=== PATIENT | female | born 1930 | race Caucasian/White ===

== ENCOUNTER 2016-08-06 08:40 | Emergency (ER) | payer OTHER ==
[~2016-08-06] VITALS: Ht 152.4 cm; Wt 77.6 kg
[~2016-08-06 08:40] MED LIST: ASPER-FLEX85 GM TOP; ASPIR 8181 MG PO; ATIVAN1 MG PO; BACTRIM DS TAB1 EACH PO; BETADINE30 ML TOP; BISACODYL SUPP10 MG RECTAL; BRILINTA90 MG PO; COLACE100 MG PO; COUMADIN 4 MG TA4 M1 PO; DELSYM COU30 MG/5 M1; DEPAKOTE 250MG250 M1 PO; DEPAKOTE ER500 MG PO; DULCOLAX5 MG PO; DUONEB 2.5-0.5 M3 ML INH; EFFIENT10 MG PO; ENOXAPARIN30 MG/0.1 SUBQ; ERYTHROMYCIN E3.5 G2 OPHTHALMIC; FERREX 150150 MG PO; FLOMAX0.4 MG PO; GEODON20 MG PO; HYDROCODONE-AP1 EAC6 PO; LABETALOL 100100 MG PO; LASIX 20 MG TAB20 MG PO; LASIX 40 MG TAB40 M2 PO; LEVAQUIN 500 M500 M2 PO; LEVOTHYROXIN0.075 MG PO; LEVOTHYROXINE0.05 MG PO; LIPITOR 20 MG T20 M1 PO; LISINOPRIL10 MG PO; LOPRESSOR25 PO; MAALOX MAXIMUM355 ML PO; MILK OF MA2400 MG/10 PO; MULTI-VITAMIN1 EAC5 PO; NUEDEXTA 20-101 EACH PO; OLANZAPINE2.5 MG PO; PEG3350510 GM PO; PEPCID20 MG PO; POLYMYXIN B/TMP10 ML OP; PRILOSEC 20 MG20 MG PO; ROBITUSSIN100 MG/53 PO; SEROQUEL 25 MG25 M1 PO; TRAZODONE HCL50 MG PO; TYLENOL325 MG PO; VENTOLIN HFA 1818 GM INH; VERAPAMIL SR180 MG PO; VITAMIN D1000 UNI1 PO; ZYPREXA5 MG PO; ZYPREXA7.5 MG PO; ZYVOX600 MG PO
[2016-08-06 10:10] LABS: BASOPHILS 0.5 % (0.0-2.0); EOSINOPHILS 2.9 % (0.0-3.0); HEMATOCRIT 37.8 % (37.0-47.0); HEMOGLOBIN 12.6 gm/dL (12.0-15.0); LYMPHOCYTES 34.4 % (24.0-44.0); MCH 30.7 pg (26.0-34.0); MCHC 33.3 % (28.0-37.0); MCV 92.2 fL (80.0-100.0); MONOCYTES 8.3 % (1.0-8.0); PLATELET COUNT 185 thou/uL (150-400); POLYS 53.9 % (36.0-66.0); RDW 14.8 % (10.5-14.5); WBC 5.5 thou/uL (4.0-11.0)
[2016-08-06 10:12] LABS: MANUAL DIFF NO
[2016-08-06 10:23] LABS: CALCIUM 10.1 mg/dL (8.5-10.1); CREATININE 1.1 mg/dL (0.6-1.3); POTASSIUM 4.6 mmol/L (3.5-5.1)
[2016-08-06 10:27] LABS: ALBUMIN 3.1 g/dL (3.4-5.0); TOTAL BILIRUBIN 0.4 mg/dL (<0.1-1.0); TOTAL PROTEIN 7.6 g/dL (6.4-8.2)
[2016-08-06 10:35] LABS: URINE BILIRUBIN NEGATIVE (Negative); URINE BLOOD NEGATIVE (Negative); URINE COLOR YELLOW; URINE GLUCOSE-RANDOM* NEGATIVE (Negative); URINE KETONES NEGATIVE (Negative); URINE LEUKOCYTES-REFLEX NEGATIVE (Negative); URINE PROTEIN (DIPSTICK) NEGATIVE (Negative); URINE UROBILINOGEN 0.2 E.U./dl (0.2-1.0)
== END 2016-08-06 11:40 | disposition home or self-care (01) ==
LOC: ER 08:40
PROVIDERS: Emergency Medicine
DX: F03.90 Unspecified dementia, unspecified severity, without behavioral disturbance, psychotic disturbance, mood disturbance, and anxiety (principal); I11.0 Hypertensive heart disease with heart failure; I50.9 Heart failure, unspecified; K21.9 Gastro-esophageal reflux disease without esophagitis; Z91.030 Bee allergy status; Z88.5 Allergy status to narcotic agent; Z88.0 Allergy status to penicillin; Z91.018 Allergy to other foods

== ENCOUNTER 2020-06-24 13:40 | Inpatient (IN) | payer MEDICARE, OTHER ==
[~2020-06-24] VITALS: Ht 165.1 cm; Wt 84.8 kg
--- NOTE | ~2020-06-24 | EMS ---
[address] [address] EMS Patient Care Report Name: LORNE CASTRO Room #: REG BRIA Guadarrama#: [id number] Admission: 06/24/20 Attend Phys: Discharge: Date of : 31 Report #: [id number] THIS REPORT FOR: //name// Report Transmitted: 06/24/2020 16:11 EMS Care Summary [facility] Incident [id number] @ 06/24/2020 12:50 Incident Location [address] [place], [place] [address] Patient LORNE CASTRO Female, 89 Years 1930 Patient Address [address] [place] [address] Patient History Dementia, Patient Allergies Penicillin allergy, Patient Medications Metoprolol, Hydrocodone, Chief Complaint ABNORMAL LABS Disposition Transported No Lights/[place], Upgraded Dispatch Reason Sick Person Transported To [facility] Narrative WALKING INTO PATIENTS ROOM I FOUND PATIENT LAYING SUPINE WITH A BAG OF FLUID ATTACHED TO PT HANGING ON IV POLL. LITER BAG OF CLEAR FLUID WAS EMPTY. I NOTICED THAT LABEL ON IV BAG WAS NOT THAT OF PATIENTS, NAME ON PARTIALLY TORN LABEL READ GUERRERO MCKEON OR LUIS. LAST NAME WAS HARD TO READ THE LABEL HAD [address] [address] EMS Patient Care Report Name: LORNE CASTRO Room #: REG BRIA Guadarrama#: [id number] Admission: 06/24/20 Attend Phys: Discharge: Date of : 31 Report #: [id number] BEEN PARTIALLY REMOVED. I INQUIRED WITH NURSE ABOUT WRONG PT NAME ON BAG OF FLUID. NURSE STATED THEY WERE OUT OF NORMAL SALINE FOR THE PATIENT SO IT IS NORMAL PRACTICE FOR THEM TO ADMINISTER OTHER PTS NORMAL SALINE. PT C/C WAS ABNORMAL LABS. BEDSIDE REPORT WAS GIVEN OF PT HAVING ACUTE RENAL FAILURE. NURSE REPORTED PT WAS HYPERNATREMIC. INITIAL ASSESSMENT DID NOT FIND ANY LIFE THREATS. AIRWAY INTACT, VS WNL, PT AOX1 GCS 12 WITH BASELINE OF UNABLE TO COMMUNICATE WITH COGNITIVE DISORDER. I HELPED PT FINISH CHANGING INTO GOWN. PT WAS A FULL LIFT ONTO COT/SECURED TO COT. PT WAS TAKEN TO AMBULANCE. SECONDARY ASSESSMENT REVEALED PT TO HAVE ST ELEVATION. PT AOX1, GCS 12 WITH COGNITIVE DISORDER. AIRWAY INTACT. OTHER VS WNL. CALL WAS UPGRADED TO EMERGENT AND READIO REPORT WAS GIVEN TO [facility] ER. I ATTEMPTED TO GIVE PT ONE TYLENOL CHEWABLE TABLET. PT UNABLE TO CHEW TABLET, TYLENOL DCD. 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 PT WAS TAKEN BY COT TO ER AND FULL LIFT TO ER BED. BEDSIDE REPORT GIVEN, MEDIC ONE N SERVICE. Initial Vitals @13:33P: 110,R: 12,Pain: 0/10,GCS: 12,SpO2: 95,SD Suspected: true @13:21P: 118,R: 20,Pain: 0/10,GCS: 12,CO: 0,SpO2: 94, @13:00P: 100,R: 15,BP: 128/87,Pain: 0/10,GCS: 12,CO: 0,SpO2: 91,Revised Trauma: 11, @13:23P: 127,R: 28,Pain: 0/10,GCS: 12,SpO2: 95,SD Suspected: true @13:36P: 100,R: 15,BP: 140/91,Pain: 0/10,GCS: 12,SpO2: 95,Revised Trauma: 11, Assessments @13:00MENTAL:Other,Person Oriented,SKIN:No Abnormalities,HEENT:Head/Face: No Abnormalities,Eyes: No Abnormalities,Neck/Airway: No Abnormalities,LUNG SOUNDS:General: No Abnormalities,Left Upper: No Abnormalities,Right Upper: No Abnormalities,Left Lower: No Abnormalities,Right Lower: No Abnormalities,ABDOMEN:General: No Abnormalities,Left Upper: No Abnormalities,Right Upper: No Abnormalities,Left Lower: No Abnormalities,Right Lower: No Abnormalities,PELVIS//GI:EXTREMITIES:Left Arm: No Abnormalities,Right Arm: No Abnormalities,Left Leg: No Abnormalities,Right Leg: No Abnormalities,PULSE:NEURO:Other,@13:15MENTAL:Other,Person Oriented,SKIN:No Abnormalities,HEENT:Head/Face: No Abnormalities,Eyes: No Abnormalities,Neck/Airway: No Abnormalities,LUNG SOUNDS:General: No Abnormalities,Left Upper: No Abnormalities,Right Upper: No Abnormalities,Left Lower: No Abnormalities,Right Lower: No Abnormalities,ABDOMEN:General: No Abnormalities,Left Upper: No Abnormalities,Right Upper: No Abnormalities,Left Lower: No Abnormalities,Right Lower: No Abnormalities,PELVIS//GI:EXTREMITIES:Left Arm: No Abnormalities,Right Arm: No Abnormalities,Left Leg: No Abnormalities,Right Leg: No Abnormalities,PULSE:NEURO:Other, Impression Metabolic disorder [address] [address] EMS Patient Care Report Name: LORNE CASTRO Room #: REG BRIA Guadarrama#: [id number] Admission: 06/24/20 Attend Phys: Discharge: Date of : 31 Report #: [id number] Procedures @13:3312-Lead ECGResponse: UnchangedSucceeded@13:2312-Lead ECGResponse: UnchangedSucceeded@13:00ALS AssessmentResponse: UnchangedSucceeded@13:15ALS AssessmentResponse: UnchangedSucceeded@13:25Acetaminophen - 81 Milligrams (mg) - OralResponse: Unchanged@13:033-Lead ECGResponse: UnchangedSucceeded Timeline 12:48,Call Received 12:48,Psap Call 12:50,Dispatched 12:51,En Route 12:55,On Scene 12:57,At Patient 13:00,ALS Assessment,Response: UnchangedSucceeded, 13:00,BP: 128/87 M,PULSE: 100,RR: 15 R,SPO2: 91 Ox,ETCO2: ,BG: ,PAIN: 0,GCS: 12, 13:03,3-Lead ECG,Response: UnchangedSucceeded, 13:13,Depart Scene 13:15,ALS Assessment,Response: UnchangedSucceeded, 13:21,BP: / M,PULSE: 118,RR: 20 R,SPO2: 94 Ox,ETCO2: ,BG: ,PAIN: 0,GCS: 12, 13:23,12-Lead ECG,Response: UnchangedSucceeded, 13:23,BP: / M,PULSE: 127,RR: 28 R,SPO2: 95 Ox,ETCO2: ,BG: ,PAIN: 0,GCS: 12, 13:25,Acetaminophen - 81 Milligrams (mg) - Oral,Response: Unchanged 13:33,12-Lead ECG,Response: UnchangedSucceeded, 13:33,BP: / M,PULSE: 110,RR: 12 R,SPO2: 95 Ox,ETCO2: ,BG: ,PAIN: 0,GCS: 12, 13:35,At Destination 13:36,BP: 140/91 M,PULSE: 100,RR: 15 R,SPO2: 95 Ox,ETCO2: ,BG: ,PAIN: 0,GCS: 12, 14:09,Call Closed Disclaimer v1.1 Copyright 2020 [employer] This EMS Care Summary contains data elements from the applicable legal record (which may be displayed differently). It is designed to provide pertinent information for the following purposes: continuity of care, clinical quality, and state data reporting. The complete legal record is available to ED staff and administrators of the receiving hospital in [employer]'s Patient Tracker. All data is provided "as is."
--- NOTE | ~2020-06-24 | EMS ---
[address] [address] EMS Patient Care Report Name: LORNE CASTRO Room #: 170-6 ADM IN M.R.#: [id number] Admission: 06/24/20 Attend Phys: Gino Kowalski MD Discharge: Date of : 31 Report #: [id number] THIS REPORT FOR: //name// Report Transmitted: 06/25/2020 06:32 EMS Care Summary [facility] Incident [id number] @ 06/24/2020 12:50 Incident Location [address] [address] Patient LORNE CASTRO Female, 89 Years 1930 Patient Address [address] [place] [address] Patient History Dementia, Patient Allergies Penicillin allergy, Patient Medications Metoprolol, Hydrocodone, Chief Complaint ABNORMAL LABS Disposition Transported No Lights/[place], Upgraded Dispatch Reason Sick Person Transported To [facility] Narrative WALKING INTO PATIENTS ROOM I FOUND PATIENT LAYING SUPINE WITH A BAG OF FLUID ATTACHED TO PT HANGING ON IV POLL. LITER BAG OF CLEAR FLUID WAS EMPTY. I NOTICED THAT LABEL ON IV BAG WAS NOT THAT OF PATIENTS, NAME ON PARTIALLY TORN LABEL READ GUERRERO MCKEON OR LUIS. LAST NAME WAS HARD TO READ THE LABEL HAD [address] [address] EMS Patient Care Report Name: LORNE CASTRO Room #: 170-6 ADM IN Kurt.#: [id number] Admission: 06/24/20 Attend Phys: Gino Kowalski MD Discharge: Date of : 31 Report #: [id number] BEEN PARTIALLY REMOVED. I INQUIRED WITH NURSE ABOUT WRONG PT NAME ON BAG OF FLUID. NURSE STATED THEY WERE OUT OF NORMAL SALINE FOR THE PATIENT SO IT IS NORMAL PRACTICE FOR THEM TO ADMINISTER OTHER PTS NORMAL SALINE. PT C/C WAS ABNORMAL LABS. BEDSIDE REPORT WAS GIVEN OF PT HAVING ACUTE RENAL FAILURE. NURSE REPORTED PT WAS HYPERNATREMIC. INITIAL ASSESSMENT DID NOT FIND ANY LIFE THREATS. AIRWAY INTACT, VS WNL, PT AOX1 GCS 12 WITH BASELINE OF UNABLE TO COMMUNICATE WITH COGNITIVE DISORDER. I HELPED PT FINISH CHANGING INTO GOWN. PT WAS A FULL LIFT ONTO COT/SECURED TO COT. PT WAS TAKEN TO AMBULANCE. SECONDARY ASSESSMENT REVEALED PT TO HAVE ST ELEVATION. PT AOX1, GCS 12 WITH COGNITIVE DISORDER. AIRWAY INTACT. OTHER VS WNL. CALL WAS UPGRADED TO EMERGENT AND READIO REPORT WAS GIVEN TO [facility] ER. I ATTEMPTED TO GIVE PT ONE ASPRIN CHEWABLE TABLET. PT UNABLE TO CHEW TABLET, ASPRIN DC'D. 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 PT WAS TAKEN BY COT TO ER AND FULL LIFT TO ER BED. BEDSIDE REPORT GIVEN, MEDIC ONE N SERVICE. Initial Vitals @13:33P: 110,R: 12,Pain: 0/10,GCS: 12,SpO2: 95,RI Suspected: true @13:21P: 118,R: 20,Pain: 0/10,GCS: 12,CO: 0,SpO2: 94, @13:00P: 100,R: 15,BP: 128/87,Pain: 0/10,GCS: 12,CO: 0,SpO2: 91,Revised Trauma: 11, @13:23P: 127,R: 28,Pain: 0/10,GCS: 12,SpO2: 95,RI Suspected: true @13:36P: 100,R: 15,BP: 140/91,Pain: 0/10,GCS: 12,SpO2: 95,Revised Trauma: 11, Assessments @13:00MENTAL:Other,Person Oriented,SKIN:No Abnormalities,HEENT:Head/Face: No Abnormalities,Eyes: No Abnormalities,Neck/Airway: No Abnormalities,LUNG SOUNDS:General: No Abnormalities,Left Upper: No Abnormalities,Right Upper: No Abnormalities,Left Lower: No Abnormalities,Right Lower: No Abnormalities,ABDOMEN:General: No Abnormalities,Left Upper: No Abnormalities,Right Upper: No Abnormalities,Left Lower: No Abnormalities,Right Lower: No Abnormalities,PELVIS//GI:EXTREMITIES:Left Arm: No Abnormalities,Right Arm: No Abnormalities,Left Leg: No Abnormalities,Right Leg: No Abnormalities,PULSE:NEURO:Other,@13:15MENTAL:Other,Person Oriented,SKIN:No Abnormalities,HEENT:Head/Face: No Abnormalities,Eyes: No Abnormalities,Neck/Airway: No Abnormalities,LUNG SOUNDS:General: No Abnormalities,Left Upper: No Abnormalities,Right Upper: No Abnormalities,Left Lower: No Abnormalities,Right Lower: No Abnormalities,ABDOMEN:General: No Abnormalities,Left Upper: No Abnormalities,Right Upper: No Abnormalities,Left Lower: No Abnormalities,Right Lower: No Abnormalities,PELVIS//GI:EXTREMITIES:Left Arm: No Abnormalities,Right Arm: No Abnormalities,Left Leg: No Abnormalities,Right Leg: No Abnormalities,PULSE:NEURO:Other, Impression Metabolic disorder [facility] [address] [place] [address] EMS Patient Care Report Name: LORNE CSATRO Room #: 170-6 ADM IN M.R.#: [id number] Admission: 06/24/20 Attend Phys: Gino Kowalski MD Discharge: Date of : 31 Report #: [id number] Procedures @13:3312-Lead ECGResponse: UnchangedSucceeded@13:2312-Lead ECGResponse: UnchangedSucceeded@13:00ALS AssessmentResponse: UnchangedSucceeded@13:15ALS AssessmentResponse: UnchangedSucceeded@13:033-Lead ECGResponse: UnchangedSucceeded@13:25Aspirin - 81 Milligrams (mg) - OralResponse: Unchanged Timeline 12:48,Call Received 12:48,Psap Call 12:50,Dispatched 12:51,En Route 12:55,On Scene 12:57,At Patient 13:00,ALS Assessment,Response: UnchangedSucceeded, 13:00,BP: 128/87 M,PULSE: 100,RR: 15 R,SPO2: 91 Ox,ETCO2: ,BG: ,PAIN: 0,GCS: 12, 13:03,3-Lead ECG,Response: UnchangedSucceeded, 13:13,Depart Scene 13:15,ALS Assessment,Response: UnchangedSucceeded, 13:21,BP: / M,PULSE: 118,RR: 20 R,SPO2: 94 Ox,ETCO2: ,BG: ,PAIN: 0,GCS: 12, 13:23,12-Lead ECG,Response: UnchangedSucceeded, 13:23,BP: / M,PULSE: 127,RR: 28 R,SPO2: 95 Ox,ETCO2: ,BG: ,PAIN: 0,GCS: 12, 13:25,Aspirin - 81 Milligrams (mg) - Oral,Response: Unchanged 13:33,12-Lead ECG,Response: UnchangedSucceeded, 13:33,BP: / M,PULSE: 110,RR: 12 R,SPO2: 95 Ox,ETCO2: ,BG: ,PAIN: 0,GCS: 12, 13:35,At Destination 13:36,BP: 140/91 M,PULSE: 100,RR: 15 R,SPO2: 95 Ox,ETCO2: ,BG: ,PAIN: 0,GCS: 12, 14:09,Call Closed Disclaimer v1.1 Copyright 2020 [employer] This EMS Care Summary contains data elements from the applicable legal record (which may be displayed differently). It is designed to provide pertinent information for the following purposes: continuity of care, clinical quality, and state data reporting. The complete legal record is available to ED staff and administrators of the receiving hospital in [employer]'s Patient Tracker. All data is provided "as is."
--- NOTE | ~2020-06-24 | HC ---
[facility] [place] [address] CONSULTATION Name: LORNE CASTRO Room #: 201-P ADM IN M.R.#: [id number] Admission: 06/24/20 Attend Phys: Екатерина Kowalski MD Discharge: Date of : 31 Report #: [id number] THIS REPORT FOR: cc: Jv Baron MD, Shyam MD Khosla, Parveen K. MD ~ DATE OF SERVICE: 06/26/2020 HISTORY OF PRESENT ILLNESS: This is an 89-year-old female patient who was evaluated by me for altered mental status. I reviewed the patient's records in the computer and reviewed consultants' notes. The patient is unable to provide any reliable history. I called the patient's daughter who is a durable power of brick and tile making machine operator; she provided some history. The history I get in this patient is that she went to detention about 5 years ago. The daughter tells me that she was able to do some things that time, but she does not tell me why she is really went to detention, but looks like it was because of dementia. At that time, she started losing strength in the upper and lower extremities and the best I can tell, she has not been able to do much with the legs and arms and they have to use a lift to do everything on her and she is basically bedbound. As far as dementia is concerned, she does not know the month or year. She has some deformity, which developed in the hand roughly about 2 years ago and that has also progressed. At this time, she is admitted with what looks like severe kidney problems. Her sodium is 162 when she came in and her BUN was 144. Her creatinine was 2.4. So, she has pretty significant renal problems for which she was admitted. Daughter also tells me that she develops urinary tract infections periodically and that time her mental status become worse. REVIEW OF SYSTEMS: Indicates that this patient has a history of atrial fibrillation. She is not anticoagulated. This is because of the fall risk. She recently had COVID infection and she stopped eating that time. She does have a history of hypothyroidism and hypertension. I tried to get some other history either from the record or from her or from the daughter about eye, ENT, cardiac, respiratory, GI, , musculoskeletal, constitutional, dermatological, hematological, psychiatric, throat, allergic symptom associated with present symptomatology or in general. She did not tell me anything and the history from the daughter is not very clear either. PAST MEDICAL HISTORY: Positive for atrial fibrillation and what looks like advanced dementia. FAMILY HISTORY: Unremarkable. SOCIAL HISTORY: [place] [address] CONSULTATION Name: LORNE CASTRO Room #: 201-P ADM IN M.R.#: [id number] Admission: 06/24/20 Attend Phys: Екатерина Kowalski MD Discharge: Date of : 31 Report #: [id number] PHYSICAL EXAMINATION: Pretty limited. She is alert. She is able to talk, but she does not provide any history. When I asked her what month it is, she tells me she does not know. That is the only conversation she had. I tried to do the memory and fund of knowledge testing, but she is unable to cooperate. Cranial nerve examination 2-12 was attempted, but she did not cooperate. I cannot make her move anything. She will not cooperate. She is complaining of pain. Sensory system was also unsuccessful and so was reflexes and tone. She did not understand the instruction for the cerebellar sign. There is no meningeal sign. There is no carotid bruit. Pulses are somewhat difficult to feel. There is no edema. She is moderately built individual who does not have any dysmorphic features of eyes, ears and face. Her vision and hearing looks adequate. Blood pressure is 155/78, respiration is 18, pulse is 84, temperature is 98.6. LABORATORY DATA: Sodium is 159 and as mentioned above BUN is very high, hematocrit is 47.8. CT scan shows no acute changes. IMPRESSION: This patient appeared to have an underlying dementia, which is advanced. On top of that, she has severe metabolic disturbances causing a severe metabolic encephalopathy. I had a long talk with the patient's daughter and I discussed with her to see how aggressive she wants to be. She want metabolic problems to be corrected. She does not want more aggressive testing like spinal tap, etc. She is not cooperative enough for MRI. That is what I will suggest I will talk to the primary, but I will suggest that we just stay concentrated on conservative management in this patient rather than being very aggressive and from my discussion with the daughter, I believe that what she wants to do. Thank you very much for this referral. By: 1142 1212 Les Titus MD /nt
[~2020-06-24 13:40] MED LIST changes: +ATIVAN0.5 MG PO; -LEVOTHYROXIN0.075 MG PO; +METOLAZONE 2.52.5 M1 PO; +METOPROLOL TART25 MG PO; +SENOKOT-S1 TA1 PO; +SYNTHROID112 MC1 PO
[2020-06-24 13:42] VITALS: BP 149/100
[2020-06-24] MEDS ORDERED: BUSPIRONE HCL10 MG PO (14:39)
[2020-06-24] MEDS ORDERED: POTASSIUM20 PO (14:44)
[2020-06-24] MEDS ORDERED: ULTRAM 50MG TAB50 MG PO (14:44)
[2020-06-24] MEDS ORDERED: SERTRALINE HCL25 M1 PO (14:46)
[2020-06-24 15:15] LABS: ABSOLUTE NEUTROPHILS 5.1 thou/uL (1.4-8.2); BASOPHILS 0.5 % (0.0-2.0); EOSINOPHILS 0.8 % (0.0-3.0); HEMATOCRIT 49.9 % (37.0-47.0); HEMOGLOBIN 15.8 gm/dL (12.0-15.0); LYMPHOCYTES 25.3 % (24.0-44.0); MCH 29.2 pg (26.0-34.0); MCHC 31.7 g/dL (28.0-37.0); MCV 92.2 fL (80.0-100.0); MONOCYTES 8.9 % (1.0-8.0); PLATELET COUNT 239 thou/uL (150-400); POLYS 64.5 % (36.0-66.0); RBC 5.41 mil/uL (4.20-5.00); RDW 15.8 % (10.5-14.5)
[2020-06-24 15:42] LABS: ALBUMIN 3.4 g/dL (3.4-5.0); ANION GAP 14 mmol/L (7-16); BUN 144 mg/dL (7-18); CALCIUM 10.7 mg/dL (8.5-10.1); CHLORIDE 118 mmol/L (98-107); CO2 30 mmol/L (21-32); CREATININE 2.4 mg/dL (0.6-1.0); DIRECT BILIRUBIN 0.8 mg/dL (<0.1-0.2); GLUCOSE 132 mg/dL (74-106); SGOT 30 U/L (15-37); SGPT 22 U/L (30-65); TOTAL BILIRUBIN 1.3 mg/dL (0.2-1.0); TOTAL PROTEIN 8.4 g/dL (6.4-8.2); TROPONIN-I <0.06 ng/mL (<0.06)
[2020-06-24 15:50] LABS: SODIUM 162 mmol/L (136-145)
[2020-06-24 16:43] LABS: URINE BILIRUBIN 1+ (Negative); URINE BLOOD NEGATIVE (Negative); URINE CLARITY CLEAR; URINE COLOR YELLOW; URINE GLUCOSE-RANDOM* NEGATIVE (Negative); URINE KETONES NEGATIVE (Negative); URINE LEUKOCYTES-REFLEX NEGATIVE (Negative); URINE NITRITE-REFLEX NEGATIVE (Negative); URINE PROTEIN (DIPSTICK) NEGATIVE (Negative); URINE SPECIFIC GRAVITY 1.025 (1.005-1.035)
[2020-06-24 16:59] LABS: ICTOTEST (BILI CONFIRMATORY) Positive (Negative)
--- NOTE | 2020-06-24 19:28 | EKG ---
[facility] [place] [address] ELECTROCARDIOGRAM REPORT Name: LORNE CASTRO Room #: 170-6 ADM IN M.R.#: [id number] Admission: 06/24/20 Attend Phys: Gino Kowalski MD Discharge: Date of : 31 Report #: [id number] THIS REPORT FOR: cc: Jv Baron MD, Shyam MD Lundgren,Esau Gtz MD [facility] ~ THIS REPORT FOR: //name// [facility] ED Test Date: 2020-06-24 Test Time: 13:41:41 Pat Name: LORNE CASTRO Department: Room: 170 Gender: F Helpdesk Administrator: ADITI : 1930 Requested By: Jayleen Oneill Order Number: [id number] MD: Esau Turpin Measurements Intervals [place] Rate: 100 P: WI: QRS: 56 QRSD: 144 T: -76 QT: 422 QTc: 545 Interpretive Statements Atrial fibrillation Right bundle branch block Possible inferior infarct, age indeterminate ST and T wave abnormality Baseline wander in lead(s) II,III,aVF Compared to ECG 10/22/2016 23:22:15 Unable to compare due to marked artifact on this tracing. Atrial fibrillation was present on both studies Electronically Signed On 06-24-2020 19:28:11 MATH SPECIALIST by Esau Turpin [email or web address] <ELECTRONICALLY SIGNED> By: Esau Turpin MD, FAC 06/24/20 1928 134 134 Esau Turpin MD, [facility] /EPI
[2020-06-25 00:28] LABS: MAGNESIUM 2.3 mg/dL (1.8-2.4); POTASSIUM 3.2 mmol/L (3.5-5.1)
[2020-06-25 03:51] VITALS: BP 117/71
--- NOTE | 2020-06-25 11:03 | NUR ---
DR MUNOZ REPORTS TO ABRAN BURNHAM THAT THE PT CAN NOT BE CLEARED AT THIS TIME ON THE SIDE OF CAUTION STATING THAT HE LEANS TOWARD 20 DA[address] AFTER COVID DX. DR MUNOZ REFERS TO EVAL BY DR DOSHI ON FRIDAY
[2020-06-25 13:31] LABS: ABSOLUTE NEUTROPHILS 5.2 thou/uL (1.4-8.2); BASOPHILS 0.4 % (0.0-2.0); EOSINOPHILS 1.2 % (0.0-3.0); HEMATOCRIT 47.8 % (37.0-47.0); HEMOGLOBIN 15.1 gm/dL (12.0-15.0); LYMPHOCYTES 20.9 % (24.0-44.0); MCH 29.3 pg (26.0-34.0); MCHC 31.7 g/dL (28.0-37.0); MCV 92.5 fL (80.0-100.0); MONOCYTES 7.2 % (1.0-8.0); PLATELET COUNT 223 thou/uL (150-400); POLYS 70.3 % (36.0-66.0); RBC 5.17 mil/uL (4.20-5.00); RDW 16.1 % (10.5-14.5); WBC 7.4 thou/uL (4.0-11.0)
[2020-06-25 13:40] LABS: CALCIUM 10.6 mg/dL (8.5-10.1); CREATININE 1.7 mg/dL (0.6-1.0); POTASSIUM 3.3 mmol/L (3.5-5.1)
[2020-06-25 13:44] LABS: MAGNESIUM 2.2 mg/dL (1.8-2.4); PHOSPHORUS 2.7 mg/dL (2.5-4.9)
--- NOTE | 2020-06-25 15:13 | NUR ---
PTS DAUGHTER CALLED WANTING TO TALK TO NURSE AND DOCTOR FOR AN UPDATE
--- NOTE | 2020-06-25 15:30 | NUR ---
EDI-MELISSA [phone] RAIZA
[2020-06-26] VITALS (9 sets, daily range): BP systolic 145–157; BP diastolic 78–103
--- NOTE | 2020-06-26 04:07 | NUR ---
Pt is am ER admit. Pt is confused. Unable to obtain admission data from patient. Admission assessment completed. Fall precaution in place. Pt is stable through the night. No acute events overnight.
--- NOTE | 2020-06-26 11:23 | NUR ---
Patient admits from [facility] for hypernatremia. Patient ltc resident of [facility]. Sp with admissions at [facility]. They reports they usually see patient in a wc at facility. Sp with dtr plan return once stable. DC site planner to fax updates.
[2020-06-26 13:31] LABS: ABSOLUTE NEUTROPHILS 5.4 thou/uL (1.4-8.2); BASOPHILS 0.3 % (0.0-2.0); EOSINOPHILS 1.1 % (0.0-3.0); HEMATOCRIT 42.7 % (37.0-47.0); HEMOGLOBIN 13.8 gm/dL (12.0-15.0); LYMPHOCYTES 22.7 % (24.0-44.0); MCH 29.1 pg (26.0-34.0); MCHC 32.3 g/dL (28.0-37.0); MCV 89.8 fL (80.0-100.0); MONOCYTES 7.7 % (1.0-8.0); PLATELET COUNT 165 thou/uL (150-400); POLYS 68.2 % (36.0-66.0); RBC 4.75 mil/uL (4.20-5.00); RDW 15.3 % (10.5-14.5); WBC 7.9 thou/uL (4.0-11.0)
[2020-06-26 13:51] LABS: ALBUMIN 2.8 g/dL (3.4-5.0); ANION GAP 10 mmol/L (7-16); BUN 73 mg/dL (7-18); CHLORIDE 111 mmol/L (98-107); CHOLESTEROL 130 mg/dL (<200); CO2 26 mmol/L (21-32); CREATININE 1.3 mg/dL (0.6-1.0); GLUCOSE 158 mg/dL (74-106); HDL CHOLESTEROL 23 mg/dL (>40); LDL CHOLESTEROL 66 mg/dL (<100); MAGNESIUM 1.7 mg/dL (1.8-2.4); PHOSPHORUS 1.7 mg/dL (2.5-4.9); POTASSIUM 3.1 mmol/L (3.5-5.1); SGOT 28 U/L (15-37); SGPT 18 U/L (30-65); SODIUM 147 mmol/L (136-145); TC:HDL 5.7 Ratio (Not establshd); TOTAL BILIRUBIN 1.2 mg/dL (0.2-1.0); TOTAL PROTEIN 7.2 g/dL (6.4-8.2); TRIGLYCERIDE 207 mg/dL (<150); VLDL 41 mg/dL (<40)
--- NOTE | 2020-06-26 19:43 | NUR ---
ASSUMED CARE AT CHANGE OF SHIFT. CONFUSED, RESPONDS TO PAIN AND STIMULI, CALLS OUT FOR HER DAD AND MOM DOES NOT ANSWER QUESTIONS. VSS, ON CARDIZEM DRIP. UNABLE TO SWALLOW PILLS, PER ST PATIENT TAKES VERY SMALL BITES. PT BEGAN COUGHING AFTER EATING 25% OF MEAL. JACKSON IN PLACE. NO BM NOTED. REPLACED POTASSIUM PER ORDERS. PT UNABLE TO DEMONSTRATE CALL LIGHT. STAFF TO ANTICIOPATE NEEDS. FALL PRECAUTIONS IN PLACE.
[2020-06-27] VITALS (7 sets, daily range): BP systolic 122–148; BP diastolic 71–88
[2020-06-27 08:04] LABS: CALCIUM 9.7 mg/dL (8.5-10.1); MAGNESIUM 1.5 mg/dL (1.8-2.4)
[2020-06-27 08:24] LABS: POTASSIUM 4.5 mmol/L (3.5-5.1)
--- NOTE | 2020-06-27 13:56 | NUR ---
FAXED CLINICAL UPDATE TO [facility] SPOKE WITH DAV IN ADM SHE RECEIVED UPDATE. DP TO FOLLOW.
--- NOTE | 2020-06-27 15:32 | 2DMMODE ---
[facility] [address] [place] [address] 2 D/M-MODE ECHOCARDIOGRAM Name: LORNE CASTRO Room #: 201-P ADM IN M.R.#: [id number] Admission: 06/24/20 Attend Phys: Екатерина Kowalski MD Discharge: Date of : 31 Report #: [id number] THIS REPORT FOR: cc: Jv Baron MD, Shyam MD Lammoglia, Francisco J. MD ~ APPROVED REPORT Study performed: 06/27/2020 12:59:10 EXAM: Comprehensive 2D, Doppler, and color-flow Echocardiogram Patient Location: Bedside Room #: 201 Status: routine BSA: 1.85 HR: 69 bpm BP: 142/75 mmHg Rhythm: Atrial Flutter Other Information Study Quality: Technically Difficult Technically limited study due to uncooperative patient, inability to position patient. Indications Aortic Valve Disease CAD Hypertension/HDD Atrial flutter 2D Dimensions LVOT Diam: 20.58 (18-24mm) IVC: 17.00 mm Aortic Valve AoV Peak Kendall.: 2.82 m/s AO Peak Gr.: 31.87 mmHg LVOT Max P.32 mmHg AO Mean Gr.: 19.16 mmHg LVOT Mean P.39 mmHg AO V2 Mean: 2.03 m/s LVOT Max V: 1.04 m/s AO V2 VTI: 56.20 cm LVOT Mean V: 0.72 m/s KAREN (VTI): 1.35 cm2 LVOT V1 VTI: 22.74 cm KAREN Vmax: 1.22 cm2 SV (LVOT): 75.59 mL [facility] [place] [address] 2 D/M-MODE ECHOCARDIOGRAM Name: LORNE CASTRO Room #: 201-P [facility] IN .R.#: [id number] Admission: 06/24/20 Attend Phys: Екатерина Kowalski, Discharge: Date of : 31 Report #: [id number] Pulmonary Valve PV Peak Kendall.: 0.60 m/s PV Peak Gr.: 1.43 mmHg Tricuspid Valve TR Peak Kendall.: 2.49 m/s TR Peak Gr.: 24.78 mmHg PA Pressure: 30.00 mmHg Left Ventricle The left ventricle is normal size. There is normal LV segmental wall motion. There is normal left ventricular wall thickness. The left ventricular systolic function is normal. The left ventricular ejection fraction is within the normal range. LVEF is 55-60%. This study is not technically sufficient to allow evaluation of the LV diastolic function. Right Ventricle The right ventricle is normal size. The right ventricular systolic function is normal. Atria Left atrium is dilated. Right atrium is dilated. Aortic Valve The aortic valve is normal in structure. Aortic valve is calcified. No aortic regurgitation is present. Moderate aortic stenosis. Mitral Valve The mitral valve is normal in structure. Mild mitral regurgitation. No evidence of mitral valve stenosis. Tricuspid Valve The tricuspid valve is normal in structure. There is mild tricuspid regurgitation. Estimated PAP 30mmHg. There is mild pulmonary hypertension. Pulmonic Valve The pulmonary valve is normal in structure. There is no pulmonic valvular regurgitation. Great Vessels The aortic root is normal in size. IVC is normal in size and collapses >50% with inspiration. Pericardium There is no pericardial effusion. [facility] [place] [address] 2 D/M-MODE ECHOCARDIOGRAM Name: LORNE CASTRO Room #: 201-P ADM IN M.R.#: [id number] Admission: 06/24/20 Attend Phys: Екатерина Kowalski, Discharge: Date of : 31 Report #: [id number] <Conclusion> The left ventricle is normal size. The left ventricle is normal size. LVEF is 55-60%. Left atrium is dilated. Right atrium is dilated. The aortic valve is normal in structure. Aortic valve is calcified. Moderate aortic stenosis. The mitral valve is normal in structure. Mild mitral regurgitation. The tricuspid valve is normal in structure. There is mild tricuspid regurgitation. Estimated PAP 30mmHg. There is mild pulmonary hypertension. The pulmonary valve is normal in structure. There is no pericardial effusion. <ELECTRONICALLY SIGNED> By: Huseyin Bess MD 06/27/20 1532 31 31 Huseyin Bess MD /INF
--- NOTE | 2020-06-27 16:54 | NUR ---
Dr Ernst sp with dtr. She plans to discuss DNR status with sister. She wants to know hospice agencies at [facility]. Called left for admissions.
--- NOTE | 2020-06-27 17:59 | NUR ---
RECEIVED PT'S CARE AROUND 0735; PT. ON BED; RESTING WITH EYES CLOSED; EQUAL CHEST RISINNG; ON CARDIZEM GTT; AFIB ON THE MONITOR; PER [place] DISC PAD GRINDING MACHINE FEEDER; OK TO STOPPED CARDIZEM AND START PO MEDICATION; BOILER SETTER [facility]; CARDIZEM GTT STOPPED; DR. SUMMERS NOTIFIED; ORDERS RECEIVED; DURING AM ASSESSMENT PT. SLEEP INTERRUPTED; AM PO PILL GIVEN; UPSET WHEN GAVE IV AND IM MEDICATION; ST. "LEAVE ME ALONE"; THROUGH THE DAY REFUSED MEALS; SPIT FOOD AND ST. "I DO NOT WANT THAT"; EDUCATED ABOUT THE IMPORTANCE OF EATING; REFUSED IT; IV RATE CHANGED BY NEPHROLOGY; DR. SUMMERS NOTIFIED; ORDERS RECEIVED; ABLE TO GIVE SUPPOSITORY AT NOON; PT. TRYING TO PINCH AND HIT NURSE AND NURSE AID; REMAIN TO BE NICE; STOPPED; CHANGED; LEAKING FROM JACKSON; INCREASE 3 ML TO [place]; RE-ASSESSMENT PT. DRY; TURNED FROM SIDE TO SIDE THROUGH THE DAY; CALL DAUGHTER DURING THE EVENING TO UPDATED ABOUT POC; PER DRShiv PT. HAD A LEGAL DOCUMENT INDICATING INTERVENTIONS; PT'S DAUGHTER ST. PT'S DECREASE COGNITION STARTED ABOUT 5 YEARS AGO AFTER "BEING RAPPED AT THE FACILITY WHERE PT. WAS FOUND ON POSITION AND WAS TAKEN TO THE HOSPITAL"; BOILER SETTER UNDERSTANDING; PT'S DAUGHTER ST. WOULD LIKE TO TRY EVERYTHING BEFORE GOING FOR HOSPICE AND UNDERSTAND THAT IF PT. DOES NOT EAT "SHE MIGHT "; ST. DR. TORRES COMMUNICATE WITH PT'S DAUGHTER "THIS MORNING" (06/27/2020); ST. IF IT GETS TO THE POINT THAT PT. NEEDS A FEEDING TUBE, SHE WOULD LIKE HER TO HAVE IT; PHYSICIAN NOTIFIED; PT'S DAUGHTER EDUCATED ABOUT VISITORS POLICY; STShiv UNDERSTANDING; ST. WILL VISIT TOMORROW (06/28/2020) "BUT NOT SURE AT WHAT TIME"; PHYSICIAN NOTIFIED; ASSESSMENT CHARGED; FOLLOWING POC; WILL PASS ON REPORT;
[2020-06-28 04:00] VITALS: BP 129/88
[2020-06-28 04:51] LABS: CALCIUM 9.3 mg/dL (8.5-10.1); CREATININE 0.7 mg/dL (0.6-1.0); POTASSIUM 3.8 mmol/L (3.5-5.1)
[2020-06-28 08:10] VITALS: BP 121/89
[2020-06-28 12:25] VITALS: BP 99/59
[2020-06-28 16:18] VITALS: BP 101/67
[2020-06-28 19:24] VITALS: BP 116/68
--- NOTE | 2020-06-28 21:46 | NUR ---
ORDERS TO TRANSFER OFF CCT. CALL TO JASMINE Mckee RN AND REPORT GIVEN. TRANSFERED PER BED TO 459. PATIENT REFUSING TO TAKE APPLESAUCE AND JASMINE VELEZ WILL TRY MEDICATIONS AGAIN ONCE SETTLED ON NEW FLOOR.
--- NOTE | 2020-06-28 21:52 | NUR ---
MESSAGE LEFT ON BOTH DAUGHTERS PHONES OF PATIENT NEW ROOM NUMBER.
[2020-06-29 07:31] VITALS: BP 121/92
[2020-06-29 07:42] LABS: HEMATOCRIT 40.3 % (37.0-47.0); HEMOGLOBIN 13.3 gm/dL (12.0-15.0); MCH 29.5 pg (26.0-34.0); MCV 89.3 fL (80.0-100.0); RBC 4.51 mil/uL (4.20-5.00); WBC 8.7 thou/uL (4.0-11.0)
[2020-06-29 07:55] LABS: ALBUMIN 2.4 g/dL (3.4-5.0); CALCIUM 9.7 mg/dL (8.5-10.1); CREATININE 0.9 mg/dL (0.6-1.0); POTASSIUM 3.8 mmol/L (3.5-5.1); TOTAL BILIRUBIN 1.2 mg/dL (0.2-1.0); TOTAL PROTEIN 6.8 g/dL (6.4-8.2)
[2020-06-29 07:57] LABS: INR 1.2; PROTIME 11.9 Seconds (9.3-11.4)
[2020-06-29 08:00] VITALS: BP 121/92
--- NOTE | 2020-06-29 09:58 | NUR ---
When ready to use PEG for nutrition: start jevity 1.5 at 30ml/hr, and progress slowly to goal 50ml/hr Add 240ml water flush every 6hr check K/phos/Mg levels and replace as appropriate to prevent refeeding syndrome
--- NOTE | 2020-06-29 12:05 | NUR ---
Amandeep foreman updated. Peg placement anticipated today. Dc land planner to fax clinical updated tomorrow in anticipation of possible weekend dc back to the [facility] if medically stable and tolerating enteral feedings.
--- NOTE | 2020-06-29 12:05 | NUR ---
Received awake on bed. Due medications given as prescribed. On telemetry; no complains and signs of chest pain, crushing sensation and heaviness. On nothing per orem, mouth care done. Assisted in ADLs, bed bath given. On room air. Vital signs stable. With matta in place, draining well; output measured and recorded accordingly; kiara care done. With D5 at 75cc/hr, infusing well at L FA; with SL at R upper arm. No nausea, no vomiting and no abdominal pain noted. Pt turned on her sides regularly. Falls bundle in place. Scheduled for PEG insertion today; on NPO post midnight. Report given to pre-op nurse, requested for pt to have abdominal binder post procedure, pt confused and with tendency to pull PEG- pre-op nurse informed and aware; brought to GI lab at 11:30am, report given; consent to be signed; brought via bed.
[2020-06-29 15:12] VITALS: BP 127/83
[2020-06-29 19:39] VITALS: BP 139/89
--- NOTE | 2020-06-30 07:05 | NUR ---
VSS-AFEBRILE. RESTED WELL THROUGH NIGHT WITH FEW NEEDS. SMALL AMOUNT OF YELLOW BILE EMESIS OVERNIGHT, PARTIAL RAJESH GIVEN. INCONTINENT OF SMALL. LOOSE BM. FALL PRECAUTIONS IN PLACE.
[2020-06-30 09:10] VITALS: BP 145/87
[2020-06-30 09:30] VITALS: BP 127/81
[2020-06-30 10:00] VITALS: BP 127/81
--- NOTE | 2020-06-30 11:48 | NUR ---
Received awake on bed. Due medications given as prescribed, crushed and given thru PEG tube. On room air. On telemetry; no complains and signs of chest pain, crushing sensation and heaviness. Mouth care done. Vitals signs stable. With matta in place, draining well; output measured and recorded accordingly. Pt turned on her sides regularly. With PEG tube in place; with minimal dark green residual this AM; shown to TECHNICAL MANAGER CHEMICAL PLANT Gastro; abdominal binder in place; ok to start tube feeding today, regimen orderd. With D5 at 75cc/hr, infusing well at R AC; previous IV site infiltrated. Assisted in ADLs. No nausea, no vomiting and no abdominal pain noted. ST informed to re-evaluate pt, for possible discharge back to facility tomorrow.
--- NOTE | 2020-06-30 13:39 | NUR ---
discussed during prime time and hospitalist dc friday07/01/2020 back to [facility]. updates sent to [facility]. send chart copy bedside nurse to call katie supervisor shuttle preparation # [phone], she will set up dc back to [facility] and transportation fax dc orders to [phone] bedside nurse call report to [phone] cm tried calling both daughters vic - wrong number and candis - no voice message set up.
[2020-06-30 16:38] VITALS: BP 138/98
--- NOTE | 2020-06-30 16:53 | NUR ---
FAXED CLINICAL UPDATE TO [facility] RECEIVED CONFIRMATION LEFT MSG WITH ADM.
[2020-06-30 19:46] VITALS: BP 116/45
--- NOTE | 2020-07-01 04:22 | NUR ---
Pt. has had intermittent periods of yelling out during the shift. She will call out for various people by name, like her mother. Iv ativan was given with little relief. She can get aggressive during direct contact, like when turning and repositioning her. Tube feeding infusing without difficulty and she has had no residuals upon aspiration. Tube feeding is patent upon auscul- tation and head of the bed is up. Bed alarm is on.
[2020-07-01 07:17] VITALS: BP 154/87
--- NOTE | 2020-07-01 11:12 | NUR ---
Received awake on bed. Due medications given as prescribed, meds crushed and given thru PEG. On room air. Vital signs stable. On telemetry; no complains and signs of chest pain, crushing sensation and heaviness. On nothing per orem- mouth care done; pt failed ST re-evaluation yesterday. With PEG tube in place, dressing changed today; H20 flushes done; ongoing Jevity 1.5 at 50ml/hr(goal rate), no residual noted. On blood sugar monitoring, taken and recorded accordingly. With matta in place, draining well; output measured and recorded accordingly. Falls bundle in place. Pt turned on her sides, with prafo boots in place. With D5 at 75cc/hr, infusing well at R FA. Pt seen and examined by Dr Peter this AM, supposed to be discharged today, upon evaluation, Dr Peter said possibly tomorrow, to observe pt today- CM informed. To continue monitoring patient.
[2020-07-01 14:24] VITALS: BP 161/81
[2020-07-01 20:24] VITALS: BP 134/91
--- NOTE | 2020-07-01 20:45 | NUR ---
Pt. resting in the bed and is restless and keeps yelling out. Upon assessment lung sounds are coarse. O2 saturation at 88% on room air. O2 started at 2 liters per a nasal canula and o2 saturation went up to 94%. Tamanna KINCAID called and notified and new orders received (see cpoe). Tylenol supp given as ordered for low grade temp.
--- NOTE | 2020-07-01 22:30 | NUR ---
Pt. resting quietly in the bed and is more oriented times three. Assisted up to the bathroom with gait belt and pt. did well. Tamanna LOAN COORDINATOR on the floor and saw patient and she did try to call his with an update on pt. She was unable to reach , but left a message. Pt. is sinus rythmn on the monitor.
[2020-07-01 23:28] LABS: HEMATOCRIT 39.5 % (37.0-47.0); HEMOGLOBIN 13.3 gm/dL (12.0-15.0); MCH 29.4 pg (26.0-34.0); MCHC 33.6 g/dL (28.0-37.0); MCV 87.4 fL (80.0-100.0); RBC 4.52 mil/uL (4.20-5.00); RDW 15.4 % (10.5-14.5); WBC 19.6 thou/uL (4.0-11.0)
[2020-07-01 23:36] LABS: CALCIUM 10.3 mg/dL (8.5-10.1); CREATININE 1.2 mg/dL (0.6-1.0); POTASSIUM 3.7 mmol/L (3.5-5.1)
[2020-07-01 23:58] LABS: BE(vivo) 5.7 mmol/L (-2 to +3); HCO3 29.5 mmol/L (22.0-26.0); PCO2 40.2 mmHg (35.0-45.0); PO2 63.7 mmHg (80.0-100.0); pH 7.484 (7.360-7.450); sO2 93.8 % (92.0-98.0)
--- NOTE | 2020-07-02 02:04 | NUR ---
Pt. will have bursts of her heart rate bouncing into the 150's, but then will go down into the 130's.
--- NOTE | 2020-07-02 02:15 | NUR ---
Pt. heart rate has been steadily climbing into the 130's and Tamanna KINCAID notified. New order for metoprolol ivp (see cpoe). Med given as ordered with no improvement in heart rate. Tamanna KINCAID called and wants cardiology called. Call placed to Dr. Turpin about 0300 and unable to reach. Another call placed to answering service and spoke to Dr. Rutledge and informed of pt. condition. New order for cardizem gtt (see cpoe).
--- NOTE | 2020-07-02 05:00 | NUR ---
Pt. transfered to room 216. Report given to Oralia VELEZ in CCU.
--- NOTE | 2020-07-02 06:18 | NUR ---
PT TRANSFERED FROM 4WEST DX AFIB RVR. ARRIVE AT APPROX 0545.PT IS DISORIENTED X 4. ON /NC. TESSIE HELM STARTED BY Brianne MAQRUEZ RN.
[2020-07-02 06:26] VITALS: BP 135/70
[2020-07-02 06:38] VITALS: BP 125/88
[2020-07-02 07:39] VITALS: BP 106/70
--- NOTE | 2020-07-02 08:24 | NUR ---
Pt. daughter (Ping) was called and updated on pt. condition and that she was moved to another unit in the hospital.
[2020-07-02 11:30] VITALS: BP 132/76
[2020-07-02 15:44] VITALS: BP 127/85
--- NOTE | 2020-07-02 18:07 | NUR ---
ASSESSMENT CHARTED - MEDS PER SEP - GIVEN LASIX 20 MGS IVP ORDERED WITH MIN RESULT. STARTED ON IV AB'S ORDERED - WHEN FIST ASSESSMENT COMPLETED THIS - CHECKED ABDO PEG TUBE SITE TO FIND BINDER - PEG TUBE DRESSING -PATIENT AND BED UNDERNEATH PATIENT DRENCHED WITH FLUID - BLACK / RED TINGED FLUID LEAKING FROM PEG TUBE SITE - DR SUMMERS MAD AWARE AND PATIENT SENT FOR CT OF ABDO. DR SUMMERS NOTIFIED DR JARQUIN. DRESSING CHANGED AND SITE CONTINUE TO LEAK MOD AMOUNT - CHANGED AGAIN AND NOW ONLY SMALL AMOUNT OF DRAINAGE FOR REST OF SHIFT - BLACK / RED DRAINAGE. PATIENT TURNED AND MOUTH CARE GIVEN - Q 3 HOURS - BUTTOCKS INTACT.JACKSON WITH TEA COLOUTED URINE - SMALL AMOUNT. ON ARRIVAL THIS AM HR AFIB RVR - RATE 130 -150. CARDIZEM AT 15 MGS AFTER PATIENT CLEANED UP HR BEGAN TO LOWER INTO 100'S AND THEN 90'S CARDIZEM REDUCED TO 10MGS/HOUR AND HR IS NOW IN THE 80'S. PT MOANING AND CALLING OUT FOR MOTHER, WHEN ABDO PALPATED PT WINCHES- PT GIVEN FENTANYL ORDERED AND THENPRN DOSE WITH GOOD EFFECT - PATIENT REST QUIETLY AFTER MEDICATION GIVEN. PT TO NOT HAVE TUBE FEEDIGN RESUMED IN PEG TUBE UNTIL FUTHER NOTICE. PRAMCKENZIE BOOTS REMIAN INISTU TO LEGS BILAT. APPEARS TO BE RESTING COMFORTABLY AT THE PRESENT TIME.
[2020-07-02 19:51] VITALS: BP 114/66
[2020-07-03 04:42] VITALS: BP 122/55
--- NOTE | 2020-07-03 06:06 | NUR ---
ASSUME CARE 1900. PT/VITALS STABLE. PT IS LETHARGIC BUT LOCALIZES PAIN AND SOMETIMES OPENS EYES. INCOMPREHENSIBLE SOUNDS NOTEDAND SOMETIMES PT CALLS OUT TO MOM. HR IS STABLE BELOW 100/PT STILL IN AFIB. TEA COLORED URINE NOTED/URINE OUTPUT IS LOW. JACKSON CATHETER IN PLACE. ASSESSMENT CHARTED. POOR PROGRESS TO PLAN OS CARE. PLAN IS TO CONTINUE ABX TREATMENT AND MONITOR LOC. NO DISTRESS NOTED THROUGH THE NIGHT. WILL CONTINUE TO MONITOR AND FOLLOW WITH POC
[2020-07-03 08:10] VITALS: BP 103/73
[2020-07-03 09:26] LABS: HEMATOCRIT 35.6 % (37.0-47.0); MCH 28.8 pg (26.0-34.0); MCHC 31.9 g/dL (28.0-37.0); MCV 90.4 fL (80.0-100.0); PLATELET COUNT 110 thou/uL (150-400); RBC 3.94 mil/uL (4.20-5.00); WBC 12.9 thou/uL (4.0-11.0)
[2020-07-03 09:29] LABS: HEMOGLOBIN 11.3 gm/dL (12.0-15.0)
[2020-07-03 09:36] LABS: ALBUMIN 1.5 g/dL (3.4-5.0); CALCIUM 9.2 mg/dL (8.5-10.1); CREATININE 1.1 mg/dL (0.6-1.0); POTASSIUM 3.1 mmol/L (3.5-5.1); TOTAL BILIRUBIN 0.5 mg/dL (0.2-1.0); TOTAL PROTEIN 5.6 g/dL (6.4-8.2)
[2020-07-03 10:00] LABS: METAMYELOCYTES 2 %; PLATELET ESTIMATE NORMAL
[2020-07-03 13:08] VITALS: BP 112/63
[2020-07-03 13:11] LABS: MAGNESIUM 1.6 mg/dL (1.8-2.4); PHOSPHORUS 3.1 mg/dL (2.5-4.9)
--- NOTE | 2020-07-03 13:55 | NUR ---
FAXED CLINICAL UPDATE TO [facility] SPOKE WITH DAV IN ADM SHE RECEIVED UPDATE. DP TO FOLLOW.
[2020-07-03 16:00] VITALS: BP 105/56
--- NOTE | 2020-07-03 20:04 | NUR ---
ASSUMED CARE OF PT AT 0700. PT WILL VERBALIZE MOM AND MOANS BUT DOES NOT ANSWER ANSWER ANY QUESTION OR FOLLOW ANY COMMANDS. VERY LETHARGIC AND SLEEPING MOST OF THE DAY TODAY. REMAINS ON CARDIZEM GTT AND AFIB WITH RATE WELL CONTROLLED. POTASSIUM AND MAG LOW TODAY AND CALLED TO DR ROBIN. NO NEW ORDERS RECIEVED. CONSULT PLACED TO SURGERY TEAM TODAY. PEG TUBE REMAINS CLAMPED, SHOWING DISPLACED ON CT SCAN AND DO NOT USE PER GI. DRAINING A SMALL AMOUNT OF BLACK DRAINAGE AROUND PEG TUBE SITE. ATTEMPTED TO CONTACT PT'S DAUGHTER TO UPDATED BUT UNABLE TO REACH HER. REPORT GIVEN TO IT TECHNICAL SUPPORT SPECIALIST RN.
[2020-07-03 20:51] VITALS: BP 113/61
[2020-07-04 05:33] VITALS: BP 99/48
--- NOTE | 2020-07-04 07:08 | NUR ---
ASSUME CARE 1900. PT/VITALS STABLE. BP RUNS LOW D/T CARDIZEM DRIP. PT LOCALIZES PAIN AND SOMETIMES MAKES INCOMPREHENSIBLE SOUNDS. AT OTHER TIMES SHE CALLS "MAMA" AND ANSWERS WHEN ASKED IF SHE IS IN PAIN. FENTANYL FOR RELIEF. ASSESSMENT CHARED. PROGRESSING SLOWLY WITH POC. AFIB ON MONITOR WITH CONTROLLED HR. POOR URINE OUTPUT NOTED AND URINE IS TEA CONLORED. PLAN IS TO CONTINUE WITH IV AND ELECTROLYTE REPLACEMENT THERAPY. MD TO DISCUSS WITH FAMILY ABOUT PALLIATIVE CARE FOR PATIENT. WILL CONTINUE TO MONITOR AND FOLLOW WITH POC
[2020-07-04 11:06] VITALS: BP 112/58
[2020-07-04 12:43] VITALS: BP 108/64
[2020-07-04 16:43] VITALS: BP 142/88
--- NOTE | 2020-07-04 16:57 | NUR ---
Dr Hiltonrs sp with dtr and reports she may be interested in [facility] eval. Reviewed with dtr Hospice House locations, she would be interested in hospice house. However in discussion dtr questioning if delirum can be reversed. Dr Rodriguez arrived on unit to sp with the dtr. casemgt following.
--- NOTE | 2020-07-04 17:35 | NUR ---
PT ASSESSED THIS MORNING. PT GROANED AND MOANED AT TOUCH, AND WAS DISORIENTED. DR LIVINGSTON NOTIFIED. NEW ORDERS NOTED. DAUGHTER AT THE BEDSIDE. UPDATED ON PT'S POC BY DR LIVINGSTON AND DR TORRES. PRN PAIN MEDS GIVEN. PT HAD PARTIAL RELIEF, BUT CONTINUED TO GROAN IN DISCOMFORT. PRN HALIDOL GIVEN. PT APPEARS TO BE RESTING COMFORTABLY AT THIS TIME. FALL PRECAUTIONS IN PLACE.
--- NOTE | 2020-07-04 19:41 | NUR ---
VASCULAR ACCESS NOTE ORDER VERIFIED FOR PICC PLACEMENT. CONSENT OBTAINED FROM PATIENTS DAUGHTER, RAIZA. RUE VASCULATURE ASSESSED. R BASILIC VEIN WIDELY PATENT. PATIENT PREPPED AND DRAPED UNDER STERILE CONDITIONS. LIDOCAINE 1% 3ML INJECTION GIVEN. VEIN CANNULATED WITH ONE ATTEMPT. GUIDEWIRE ADVANCED EASILY. VEIN DILATED. GUIDEWIRE REMOVED INTACT. 5FR TL PICC TRIMMED TO 40CM. LINE ADVANCED EASILY. INSERTED TO 37CM INTERNAL, 3CM EXTERNAL. ALL LUMENS FLUSH AND DRAW EASILY. CXR VERIFICATION FOR PLACEMENT. SHOWS LINE IN DISTAL SVC. PICC RELEASED FOR IMMEDIATE USE TO RN.
[2020-07-04 20:14] VITALS: BP 125/77
[2020-07-05 04:12] VITALS: BP 116/63
--- NOTE | 2020-07-05 05:39 | NUR ---
Pt. rested quietly at intervals during the night when checked on during frequent rounds. She will have bursts of yelling out for her mama. Pt. turned and repositioned. Bed alarm is on.
[2020-07-05 08:00] VITALS: BP 124/71
[2020-07-05 10:39] LABS: ALBUMIN 1.3 g/dL (3.4-5.0); CALCIUM 10.1 mg/dL (8.5-10.1); POTASSIUM 3.8 mmol/L (3.5-5.1); TOTAL BILIRUBIN 0.4 mg/dL (0.2-1.0); TOTAL PROTEIN 5.6 g/dL (6.4-8.2)
[2020-07-05 12:05] VITALS: BP 137/71
--- NOTE | 2020-07-05 17:40 | NUR ---
Cm reviewed options for hospice/or return to nursing snf with the dtr Ping at bedside pending her decision regarding palliative or aggressive tx. Referral faxed to [facility] per dtr request. Their liason will be here at 10am tomorrow to eval and meet with dtr. However, dtr continuing to debate agg tx and appears overwhelmed with decision making. She does want enteral feedings. PPN dc'd today and enteral feedings started. Pt could return to the alf once at goal rate and tolerating. Dtr anxious about the pt returning to [facility] d/t no visitor restrictions but not fully on board with DNR/palliative care approach. Dc plan at this time is likely to return to SNF once she is tolerating her tube feedings and continue aggressive tx.
--- NOTE | 2020-07-05 18:12 | NUR ---
PT ASSESSED 12HR POST PICC PLACEMENT. PT CONTINUED ON PPN. PT IS EDEMATOUS IN BOTH UPPER EXTREMITIES. GI CAME AND ASSESSED PEG TUBE. KUB CONDUCTED, TUBE IS IN PLACE AND PATENT. GI ORDERED TUBE FEEDING. PCP DISCONTINUED NS. CASE MGMT CONSULTED WHILE DAUGHTER AT BEDSIDE. POC IS TO MONITOR PT TOLERANCE OF TUBE FEEDING. NO CONCERNS AT THIS TIME. FALL PRECAUTIONS IN PLACE.
[2020-07-05 19:31] VITALS: BP 140/83
[2020-07-06 04:06] VITALS: BP 133/74
[2020-07-06 07:44] VITALS: BP 133/86
--- NOTE | 2020-07-06 09:34 | NUR ---
PT RESTING QUIETLY WHEN PAIN UNDER CONTROL, REPOSITIONING NEEDED, TF INCREASED TO 30 WITH NO RESIDUAL, PPN INFUSING IN R UPPER PICC WITH CARDIZEM AND ANTIBIOTICS, VSS, JACKSON WITH SEDIMENT, REPLACED PEG SITE DRESSING, REMAINS AFIB ON MONITOR. REPORT GIVEN TO NEXT SHIFT TO CON'T WITH PPOC.
[2020-07-06 11:33] VITALS: BP 129/75
[2020-07-06 15:32] VITALS: BP 134/80
--- NOTE | 2020-07-06 17:38 | NUR ---
[facility] here to provide info visit at bedside with eduardo Feng. DC plan remains [facility] once tube feeding at goal rate of 50cc/hr and tolerating. Possible dc 1-2 days. Will follow.
--- NOTE | 2020-07-06 18:19 | NUR ---
PT RECEIVING BOTH PPN AND TUBE FEEDING IN AM. PT TOLERATING TUBE FEEDING WITH LITTLE TO NO RESIDUAL. PT DISCONTINUE PPN. PT AT GOAL RATE TUBE FEEDING 50 ML/HR. PT DAUGHTER AT BEDSIDE AND SPOKE WITH HOSPICE NURSE. POC PAIN MANAGEMENT. PT IS RESTING COMFORTABLY. PT DISORIENTED X4. FALL PRECAUTIONS IN PLACE, PT HAS PROFO BOOTS AND AIR LOSS MATTRESS.
[2020-07-06 19:25] VITALS: BP 119/77
[2020-07-07 03:02] VITALS: BP 140/64
--- NOTE | 2020-07-07 08:15 | NUR ---
ASSUMED CARE OF THE PATIENT AT 1900; BEDREST/DROWSY/PT UNABLE TO COMMUNICATE; AFIB/TACHY ON THE MONITOR; BL UE EDEMA; Q2 TURNS WITH REDNESS TO GROIN AND BUTTOCKS AREA; ON 2 L N/C WITH 02 SATS IN THE 90S; PEG IN PLACE WITH DRESSING AROUND SITE CHANGED; JACKSON IN PLACE OK URINE OUTPUT; PLAN IS FOR PATIENT TO CONTINUE IV MED THERAPY; WILL CONTINUE TO MONITOR.
[2020-07-07 08:55] VITALS: BP 150/75
[2020-07-07 10:18] LABS: BE(vivo) -0.7 mmol/L (-2 to +3); HCO3 26.4 mmol/L (22.0-26.0); PCO2 54.8 mmHg (35.0-45.0); PO2 77.5 mmHg (80.0-100.0)
[2020-07-07 10:19] LABS: pH 7.301 (7.360-7.450)
[2020-07-07 10:36] LABS: HEMATOCRIT 33.1 % (37.0-47.0); HEMOGLOBIN 10.6 gm/dL (12.0-15.0); MCHC 32.1 g/dL (28.0-37.0); MCV 90.2 fL (80.0-100.0); RBC 3.67 mil/uL (4.20-5.00); RDW 17.1 % (10.5-14.5)
[2020-07-07 10:44] LABS: CALCIUM 10.7 mg/dL (8.5-10.1); POTASSIUM 3.8 mmol/L (3.5-5.1)
[2020-07-07 12:24] VITALS: BP 139/83
--- NOTE | 2020-07-07 15:19 | NUR ---
Case discussed with the care team. Pt condition declining and the attending has spoken with the dtr. Pt is now a DNR with continued agg tx. Pt is on bipap, tube feedings on hold and on iv atb. Will follow for support as needed. No weekend dc back to the shelter anticipated.
[2020-07-07 16:22] VITALS: BP 136/80
--- NOTE | 2020-07-07 18:39 | NUR ---
ASSUMED CARE AT CHANGE OF SHIFT. UNRESPONSIVE, RESPONDS TO PAINFULL STIMULI,CHESTA XRAY COMPLETED SEE REPORT. CRITICAL ABG CALLED TO DR LIVINGSTON WITH ORDERS RECIEVED. PT ON BIPAP. PER BILLING SPECIALIST SANJIV ALVARENGA DUE TO PATIENT'S STATUS HE DOES NOT RECOMMEND STARTED CARDIAC DRIP. DR LIVINGSTON NOTIFED OF BILLING SPECIALIST RECOMMENDATIONS.TUBE FEEDING RESUMED AT 1700. STARING AT 40CC. NO RESIDULS, 240 WATER FLUSH GIVEN ORDERED. PT CODE STATUS CHANGED TO DNR. CONTINUE TO MONITOR
[2020-07-07 20:38] VITALS: BP 144/87
[2020-07-07 23:53] VITALS: BP 104/49
[2020-07-08 03:42] VITALS: BP 135/77
--- NOTE | 2020-07-08 07:23 | NUR ---
ASSUMED CARE OF THE PATIENT AT 1900; BEDREST/SLEEPING/NOT RESPONSIVE TO VERBAL COMMANDS; AFIB/TACHY ON THE MONITOR; ELEVATED HR/SEE ASSESSMENTS; ON BIPAP/TITRATED DOWN TO 50-PERCENT Fi02 ON 07/07; INSERTED NEW JACKSON D/T PREV. ONE LEAKING; PLAN IS FOR PATIENT TO CONTINUE TO REMAIN ON 2N; WILL CONTINUE TO MONITOR.
[2020-07-08 08:00] VITALS: BP 112/61
[2020-07-08 11:37] VITALS: BP 127/73
[2020-07-08 15:44] VITALS: BP 111/55
--- NOTE | 2020-07-08 18:37 | NUR ---
PT ON BIPAP, RESP SET AT 25, PT RESP 35-40. HR 140S, BP STABLE, DAUGHTER AT SIDE PART OF THE DAY, TUBE FEEDING OFF TILL NOON FOR RESIDUALS GREATER THAN 100 AT 6AM, RESTARTED AT 25 AROUND 2PM, RESIDUALS AT 75 AT 5PM, DAUGHTER AWARE OF PT'S WORSENING CONDITION, SEEMS SOMEWHAT CONFUSED ON WHY PT SHOULD BE PUT ON COMFORT CARE OPPOSED TO LETTING STAY ON BIPAP TILL SHE PASSES, DR TORRES ON CASE, HE CALLED TO SPEAK WITH DTR AGAIN AND TRY TO GET COMFORT CARE, WILL FOLLOW UP WITH DTR, GRANDCHILDREN HAVE ASKED TO VISIT SINCE PT'S CONDITION IS WORSENING.
[2020-07-08 23:33] VITALS: BP 111/55
== END 2020-07-08 22:15 | DRG 871 ==
LOC: ER 13:40 → 2N 17:27 → EROBS 17:27 → 2N 06-26 02:02 → 4W 06-28 21:57 → 2N 07-02 05:55
PROVIDERS: Emergency Medicine; Hospitalist; Internal Medicine; Internal Medicine Gastroenterology; Nurse Practitioner; Nurse Practitioner Family; Psychiatry & Neurology Neuromuscular Medicine; ADMIT Internal Medicine; ATTEND Internal Medicine
PROC: 0DH68UZ Insertion of Feeding Device into Stomach, Via Natural or Artificial Opening Endoscopic (ICD-10-PCS; principal; 2020-06-29)
PROC: 02HV33Z Insertion of Infusion Device into Superior Vena Cava, Percutaneous Approach (ICD-10-PCS; 2020-07-04)
PROC: 5A09457 Assistance with Respiratory Ventilation, 24-96 Consecutive Hours, Continuous Positive Airway Pressure (ICD-10-PCS; 2020-07-07)
DX: A41.89 Other specified sepsis (principal); U07.1 COVID-19; G93.41 Metabolic encephalopathy; J96.01 Acute respiratory failure with hypoxia; J12.89 Other viral pneumonia; J69.0 Pneumonitis due to inhalation of food and vomit; N17.0 Acute kidney failure with tubular necrosis; E87.0 Hyperosmolality and hypernatremia; I48.20 Chronic atrial fibrillation, unspecified; F11.20 Opioid dependence, uncomplicated; K94.23 Gastrostomy malfunction; K80.12 Calculus of gallbladder with acute and chronic cholecystitis without obstruction; I13.0 Hypertensive heart and chronic kidney disease with heart failure and stage 1 through stage 4 chronic kidney disease, or unspecified chronic kidney disease; K21.9 Gastro-esophageal reflux disease without esophagitis; E87.6 Hypokalemia; F03.90 Unspecified dementia, unspecified severity, without behavioral disturbance, psychotic disturbance, mood disturbance, and anxiety; I25.10 Atherosclerotic heart disease of native coronary artery without angina pectoris; I50.9 Heart failure, unspecified; E03.9 Hypothyroidism, unspecified; M19.90 Unspecified osteoarthritis, unspecified site; E53.8 Deficiency of other specified B group vitamins; F48.2 Pseudobulbar affect; G47.00 Insomnia, unspecified; R13.10 Dysphagia, unspecified; F32.9 Major depressive disorder, single episode, unspecified; F41.9 Anxiety disorder, unspecified; E83.42 Hypomagnesemia; E86.0 Dehydration; R41.0 Disorientation, unspecified; R62.7 Adult failure to thrive; N18.2 Chronic kidney disease, stage 2 (mild); R63.3 Feeding difficulties; K66.8 Other specified disorders of peritoneum; N73.2 Unspecified parametritis and pelvic cellulitis; Y83.8 Other surgical procedures as the cause of abnormal reaction of the patient, or of later complication, without mention of misadventure at the time of the procedure; Y82.8 Other medical devices associated with adverse incidents; K59.00 Constipation, unspecified; Z66 Do not resuscitate; Z51.5 Encounter for palliative care; Z23 Encounter for immunization; I25.2 Old myocardial infarction; Z88.6 Allergy status to analgesic agent; Z88.0 Allergy status to penicillin; Z88.8 Allergy status to other drugs, medicaments and biological substances; Z82.49 Family history of ischemic heart disease and other diseases of the circulatory system; Z86.73 Personal history of transient ischemic attack (TIA), and cerebral infarction without residual deficits; Z95.5 Presence of coronary angioplasty implant and graft; Z79.82 Long term (current) use of aspirin; Z79.899 Other long term (current) drug therapy; Z87.11 Personal history of peptic ulcer disease; Z68.31 Body mass index [BMI] 31.0-31.9, adult
CPT/HCPCS: 10045; 10081; 27000; 70005